=== PATIENT | male | born 1975 | race Hispanic/Latino ===

== ENCOUNTER 2018-04-28 19:24 | Emergency (ER) | payer BC ==
[2018-04-28 20:02] VITALS: PULSE 78
--- NOTE | 2018-04-28 20:45 | ED PDOC ---
Lower Extremity Pain/Injury Time Seen by Provider: 04/28/18 20:04 Chief Complaint (Nursing): Lower Extremity Problem/Injury Chief Complaint (Provider): right foot eval History Per: Patient History/Exam Limitations: no limitations Onset/Duration Of Symptoms: Days (1 week) Current Symptoms Are (Timing): Still Present Additional Complaint(s): 43 y/o male presents for evaluation of pain and redness to right foot x 1 week. Patient states one week ago he noticed a red streak inbetween 1st and 2nd digit which has since wrapped around up to top of foot. Patient states today he woke up and noticed similar marking on 2nd digit and noticed something "black and moving" so he made an incision to try and remove it but lost it. Patient returned from [place] 2 weeks ago where he was often walking on beach barefoot. Patient believes he may have a hookworm on his foot. Denies fever, nausea/vomiting, numbness/weakness right lower extremity, swelling right lower extremity. No medications taken for relief thus far Past Medical History Reviewed: Historical Data, Nursing Documentation, Vital Signs Vital Signs: Last Vital Signs Temp 98.3 F 04/28/18 19:54 Pulse 78 04/28/18 19:54 Resp 20 04/28/18 19:54 BP 131/94 H 04/28/18 19:54 Pulse Ox 99 04/28/18 19:54 - Medical History PMH: No Chronic Diseases - Surgical History Surgical History: No Surg Hx - Family History Family History: States: No Known Family Hx - Living Arrangements Living Arrangements: With Family - Home Medications Home Medications: Ambulatory Orders Medication Instructions Recorded Amoxicillin/Clavulanate [Augmentin 1 tab PO Q12 #14 tab 04/28/18 875 MG-125 MG] - Allergies Allergies/Adverse Reactions: Allergies Allergy/AdvReac Type Severity Reaction Status Date / Time dexamethasone [From Decadron] Allergy RASH Verified 04/28/18 19:55 Review of Systems ROS Statement: Except As Marked, All Systems Reviewed And Found Negative Musculoskeletal: Positive for: Foot Pain Physical Exam - Reviewed Nursing Documentation Reviewed: Yes Vital Signs Reviewed: Yes - Physical Exam Appears: Positive for: Well, Non-toxic, No Acute Distress Skin: Positive for: Normal Color Pulses-Dorsalis Pedis (L): 2+ Pulses-Dorsalis Pedis (R): 2+ Pulses-Post. Tibialis (L): 2+ Pulses-Post. Tibialis (R): 2+ Extremity: Positive for: Normal ROM, Other (scabbed erythematous abrasion noted right 5th interdigit webspace extending to dorsal aspect right foot. Open incision with surrounding erythema noted lateral aspect right foot 4th digit without obvious FB or drainage. FROM. Distal NV/motor intact) Neurologic/Psych: Positive for: Alert, Oriented (x3) - ECG O2 Sat by Pulse Oximetry: 99 - Other Rad xray right foot X-Ray: Viewed By [place] X-Ray Interpretation: no acute findings - Progress ED Course And Treament: Case discussed with Podiatry resident on-call, who recommends labs and xray; will come evaluate at bedside Patient refusing blood work at this time Patient evaluated by podiatry resident on-call; recommends treatment with antibiotic and outpatient follow up for further evaluation Patient educated on findings, discharged with rx Augmentin. Advised follow up with podiatry as instructed Return precautions given Disposition - Clinical Impression Clinical Impression: Infection of skin of toes - Patient ED Disposition Is Patient to be Admitted: No Counseled Patient/Family Regarding: Studies Performed, Diagnosis, Need For Followup, Rx Given - Disposition Referrals: Timothy Pastor DPM [Medical Doctor] - Disposition Time: 23:10 Condition: IMPROVED Prescriptions: Amoxicillin/Clavulanate [Augmentin 875 MG-125 MG] 1 tab PO Q12 #14 tab Instructions: Cellulitis and Erysipelas (Skin Infections) Forms: [facility] [employer] ([facility]ami)
[2018-04-28 23:16] VITALS: BP 122/60; RESP 18; TEMP 98
[2018-04-28 23:17] VITALS: O2SAT 99
--- NOTE | 2018-04-29 01:16 | CP.PCM.CON ---
History of Present Illness - History of Present Illness History of Present Illness: Podiatry Consult Note- Dr. Pastor 43 year old male with no PMH seen and evaluated in the ED for right foot pain. Patient reports noting redness to his 4th and 5th digit. Reports noticing something moving in the skin of the 5th digit. He tries digging to remove it but it disappeared. Reports pain 6/10 and as a sharp pain. Worse with walking. Patient mentions that he was in [place] two weeks ago and is afraid that it has a parasite infection. Patient denies nausea, fever, shortness of breath, chest pains, diarrhea, or chills. Denies upset stomach or GI symptoms. PMH: denies ALL: dexamethasone MEDS: none SH: denies smoking, drinking, or illicit drug use PSH: neck surgery with internal fixation, nose surgery, tonsillectomy FH: father- HTN, heart disease Past Patient History - Past Social History Smoking Status: Never Smoked - PSYCHIATRIC Hx Substance Use: No Meds Home Medications: Home Medication List Medication Instructions Recorded Confirmed Type Amoxicillin/Clavulanate [Augmentin 1 tab PO Q12 #14 tab 04/28/18 Rx 875 MG-125 MG] Allergies/Adverse Reactions: Allergies Allergy/AdvReac Type Severity Reaction Status Date / Time dexamethasone [From Decadron] Allergy RASH Verified 04/28/18 19:55 Physical Exam - Constitutional Appears: Well, Non-toxic, No Acute Distress - Extremities Exam Extremities exam: Negative for: calf tenderness Additional comments: VASC: DP and PT 2/4 bilaterally, CFT < 3 seconds x 10 digits, temperature gradient warm to cool, WNL, no edema noted to entire lower extremity ORTHO: mild pain with palpation to the dorsum aspect of 4th and 5th digit, MM is 5/5 in all four compartments: dorsiflexion, plantarflexion, inversion and eversion, digits ROM WNL NEURO: gross and protective sensation intact DERM: medial aspect of the 4th digit with mild localized erythema. a tiny approximately .5 cm slit was made on the medial aspect of 4th digit (by knife by patient), no purulence, no abscess, no fluctance, no odor. dorsum aspect of 5th digit at the level of 5th mpj with a lazy C localized erythema with no purulence, no abscess, no fluctance, no odor, no opening noted. did not see any moving organism. - Neurological Exam Neurological exam: Alert, Oriented x3 - Psychiatric Exam Psychiatric exam: Normal Affect, Normal Mood Results - Vital Signs Recent Vital Signs: Last Vital Signs Temp 98 F 04/28/18 23:15 Pulse 78 04/28/18 23:15 Resp 18 04/28/18 23:15 BP 122/60 04/28/18 23:15 Pulse Ox 99 04/28/18 23:18 Assessment & Plan - Assessment and Plan (Free Text) Assessment: 43 year old male with no PMH with minimal localized cellulitis Plan: Patient seen and examined Discussed plan in detail with attending Dr. Pastor Labs, chart, vitals reviewed X-rays reviewed- WNL Recommends cleansing foot with soap and water, apply thin layer of triple antibiotics and bandage daily Recommends antibiotics, take as prescribe Patient to follow up with Dr. Pastor within 1 week No suspicious of parasite infection at this time with clinical picture If localized cellulitis right foot does not get better, will further evaluate in office All questions/concerns addressed Thank you for allowing us to participate in patient's care - Date & Time Date: 04/28/18 Time: 20:00
--- NOTE | 2018-04-29 15:24 | RAD ---
Date of service: 04/28/2018 PROCEDURE: Right Foot Radiographs. HISTORY: possible FB inbetween 1st and 2nd digits COMPARISON: None. FINDINGS: BONES: Normal. No fracture. JOINTS: . There a varus deformity at the level of the DIP joint 4th toe SOFT TISSUES: No definitive radiopaque foreign bodies are identified. No evidence of subcutaneous air OTHER FINDINGS: None. IMPRESSION: No evidence of acute displaced fracture nor dislocation. No evidence of radiopaque foreign body.
== END 2018-04-28 23:14 | disposition home or self-care (01) ==
LOC: H.ER 19:24
DX: L03.115 Cellulitis of right lower limb (principal)